=== PATIENT | male | born 1985 | race Caucasian/White ===

== ENCOUNTER 2018-06-26 22:53 | Emergency (ER) | payer SELFPAY ==
[~2018-06-26] VITALS: Ht 188 cm; Wt 77.3 kg
[2018-06-26 23:03] VITALS: TEMP 97
[2018-06-26 23:19] LABS: BASO % 0.1 % (0.0-2.0); GRAN # 7.3 (1.4-6.5); GRAN % 80.6 % (42.2-75.2); HEMATOCRIT 46.1 % (42.0-52.0); HEMOGLOBIN 15.6 g/dl (13.5-18.0); LYMPH # 1.1 (1.2-3.4); LYMPH % 12.7 % (20.0-51.0); MEAN CELL VOLUME 90 fl (80.0-100.0); MEAN CORPUSCULAR HEMOGLOBIN 30 pg (27.0-31.0); MEAN CORPUSCULAR HGB CONC 34 g/dl (33.0-37.0); MEAN PLATELET VOLUME 8.9 fl (7.4-10.4); MONO # 0.6 (0.1-0.6); MONO % 6.4 % (1.7-9.3); PLATELET COUNT 343 K/mm3 (130-400); RED BLOOD COUNT 5.15 M/mm3 (4.20-5.60); REDCELL DISTRIBUTION WIDTH-CV 13.9 % (11.5-14.5)
[2018-06-26 23:26] LABS: ALANINE AMINOTRANSFERASE 32 U/L (21-72); ALBUMIN 4.8 gm/dL (3.5-5.0); ALKALINE PHOSPHATASE 64 U/L (50-136); ANION GAP 15 mmol/L (7-16); AST,SGOT 62 U/L (15-37); BILIRUBIN,TOTAL 0.4 mg/dL (0.0-1.0); BLOOD UREA NITROGEN 6 mg/dL (9-20); CALCIUM 8.8 mg/dL (8.4-10.2); CARBON DIOXIDE 25 mmol/L (22-30); CHLORIDE 93 mmol/L (98-107); CREATININE, serum 0.66 (0.66-1.25); GLUCOSE 195 mg/dL (74-106); POTASSIUM 4.1 mmol/L (3.4-5.0); SODIUM 134 mmol/L (137-145); TOTAL PROTEIN 8.1 gm/dL (6.4-8.2)
[2018-06-26 23:27] LABS: ACETAMINOPHEN < 10 ug/mL (10-30); ALCOHOL(ethanol),MEDICAL < 10 mg/dL; SALICYLATE < 1.0 mg/dL
[2018-06-26 23:46] LABS: ARTERIAL BLD GAS O2 SATURATION 95.3 % (92-100); ARTERIAL BLD GAS TCO2 CT 28.4; ARTERIAL BLOOD GAS BASE EXCESS 4.4 (-2-2); ARTERIAL BLOOD GAS HCO3 27.3 meq/L (22-26); ARTERIAL BLOOD GAS PCO2 35.2 mmHg (35-45); ARTERIAL BLOOD GAS PO2 77.9 mmHg (80-100); ARTERIAL BLOOD GAS pH 7.51 (7.35-7.45)
[2018-06-26] MEDS ORDERED: LATUDA20 MG PO (23:47)
[2018-06-27 00:09] LABS: PHOSPHOROUS 4.2 mg/dL (2.5-4.5)
[2018-06-27 01:00] VITALS: BP 137/84; PULSE 137
[2018-06-27 01:01] LABS: COLLECTION METHOD CATHETER
[2018-06-27 01:09] LABS: MUCOUS Present /lpf; PH 6 (5-8); SQUAMOUS EPITHELIAL 0-2 /hpf; URINE APPEARANCE Clear; URINE BACTERIA None Seen /hpf; URINE BILIRUBIN Negative (NEGATIVE); URINE BLOOD Negative (NEGATIVE); URINE COLOR Yellow; URINE GLUCOSE 1+ (NEGATIVE); URINE KETONE 1+ (NEGATIVE); URINE LEUKOCYTE ESTERASE Negative (NEGATIVE); URINE NITRATE Negative (NEGATIVE); URINE PROTEIN(semi-quant) Negative (NEGATIVE); URINE RBC 0-2 /hpf; URINE UROBILINOGEN Negative (NEGATIVE)
[2018-06-27 01:14] LABS: TRICYCLIC ANTIDEPRESS URINE NEGATIVE
== END 2018-06-27 01:45 | disposition short-term general hospital (02) ==
LOC: COL.ER 22:53
PROVIDERS: Emergency Medicine
DX: T51.2X1A Toxic effect of 2-Propanol, accidental (unintentional), initial encounter (principal)
CPT/HCPCS: J0330; J2250; J2405; J2704; J3010; J7030